=== PATIENT | female | born 1955 | race Caucasian/White ===

== ENCOUNTER 2022-09-22 15:56 | Emergency (ER) | payer MEDICARE, OTHER, SELFPAY ==
[2022-09-22] VITALS (15 sets, daily range): BP systolic 142–149; BP diastolic 90–104; PULSE 78–102; RESP 13–25; TEMP 36.8; O2SAT 90–98; BMI 44.9
--- NOTE | 2022-09-22 16:28 | ECG_ITS ---
[facility] Test Date: 2022-09-22 Pat Name: MYLES RODRIGUEZ Department: Room: - Gender: Female Statistics Manager: : 1955 Requested By: CONNIE ONOFRE Order Number: [id number] Reading MD: JULIANA ROY Measurements Intervals [place] Rate: 103 P: -34653 DC: -21085 QRS: 153 QRSD: 134 T: -10 QT: 404 QTc: 463 Interpretive Statements 42559 Atrial fibrillation with rapid ventricular response with aberrant conduction, or ventricular premature complexes 2450 Right bundle branch block 7100 Abnormal right axis deviation 9150 abnormal ECG No previous ECG available for comparison Electronically Signed On 09-22-2022 20:29:46 EDT by JULIANA ROY
[2022-09-22] MEDS: ONDANSETRON PF 4 MG/2 ML VIAL IV (16:49)
[2022-09-22] MEDS: 0.9 % SODIUM CHLORIDE 1,000 ML 1000 ML IV (16:49)
[2022-09-22] MEDS: PANTOPRAZOLE SODIUM 40 MG VIAL IV (16:49)
[2022-09-22 17:02] LABS: Basophils Percent Auto 0.6 % (0.2-2.0); Eosinophils Absolute Auto 0.1 10^3/uL (0.0-0.7); Eosinophils Percent Auto 1.2 % (0.9-7.0); Hematocrit 46.1 % (36.0-48.0); Hemoglobin 15.7 g/dL (12.0-16.0); Immature Granulocytes Abs Auto 0.02 10^3/uL (0.00-0.03); Immature Granulocytes Pct Auto 0.3 % (0.0-0.5); Lymphocytes Absolute Auto 1.7 10^3/uL (1.2-3.8); Lymphocytes Percent Auto 26.1 % (20.5-60.0); Mean Corpuscular HGB Conc 34.1 g/dL (29.9-35.2); Mean Corpuscular Hemoglobin 29.6 pg (26.7-34.0); Monocytes Absolute Auto 0.6 10^3/uL (0.3-0.8); Monocytes Percent Auto 9.6 % (1.7-12.0); Neutrophils Absolute Auto 4.1 10^3/uL (1.4-6.5); Neutrophils Percent Auto 62.2 % (43.0-75.0); Platelet Count 271 10^3/uL (150-450); White Blood Count 6.7 10^3/uL (4.0-11.0)
[2022-09-22 17:20] LABS: D Dimer 0.36 mg/L FEU (<=0.59)
--- NOTE | 2022-09-22 17:38 | XR_ITS ---
The [address] [address] Patient Name: MYLES RODRIGUEZ MRN: [id number] date: 1955 Sex: F Assigned Patient Location: ER Current Patient Location: ER Accession/Order Number: [id number] Exam Date: 09/22/2022 17:40 Report Date: 09/22/2022 18:00 At the request of: JUAN R VÁZQUEZ Procedure: XR chest 1V EXAM: XR chest 1V HISTORY: . chest pain . COMPARISON: 08/04/2014 TECHNIQUE: Single view of the chest. FINDINGS: Heart and vascularity are unremarkable. Lungs are free of focal infiltrates. Arthritic changes of both shoulders are noted. EKG leads overlie the chest. Impression: No acute heart or lung disease identified. Electronically authenticated by: TRACY LEMUS Date: 09/22/2022 18:00
[2022-09-22 17:42] LABS: INR 1.03; Partial Thromboplastin Time 30.1 sec (22.3-36.2); Prothrombin Time 10.9 sec (9.0-11.6)
[2022-09-22 17:43] LABS: Alanine Aminotransferase 25 U/L (14-59); Albumin Globulin Ratio 0.9; Albumin Level 4.1 g/dL (3.4-5.0); Alkaline Phosphatase 103 U/L (46-116); Anion Gap 13.2; Aspartate Amino Transferase 22 U/L (15-37); BUN Creatinine Ratio 20.7; Bilirubin Total 0.4 mg/dL (0.2-1.0); Calcium 9.1 mg/dL (8.5-10.1); Carbon Dioxide 27.1 mmol/L (21.0-32.0); Chloride 98 mmol/L (98-107); Estimated GFR (African America >60 (>=60); Estimated GFR (Non-African Ame >60 (>=60); Globulin 4.5 g/dL; Glucose 94 mg/dL (74-106); Potassium 3.3 mmol/L (3.5-5.1); Sodium 135 mmol/L (136-145); Total Protein 8.6 g/dL (6.4-8.2)
[2022-09-22 17:50] LABS: Troponin I High Sensitivity 7.4 pg/mL (4.0-51.3)
--- NOTE | 2022-09-22 18:05 | ED.GENADUL1 ---
Documented by User: NEDRA Reynoso 09/22/22 18:22 HPI - General Adult General Chief complaint: Chest Pain Stated complaint: HIGH BLOOD PRESSURE Time Seen by Provider: 09/22/22 16:28 Source: patient Mode of arrival: walk-in Limitations: no limitations History of Present Illness HPI narrative: patient is a 67-year-old female who presents to the emergency department for the evaluation of epigastric discomfort that began this morning. She states it has been constant throughout the day. She states pain started radiating to her right shoulder and in between her shoulder blades. She states that made her nervous and she came to the Emergency Room to be evaluated. She denies any sonja chest pain, shortness of breath. She has a history of atrial fibrillation, she sees a salesperson [employer] in [place]. She has no appointment next week. She states she is chronically in atrial fibrillation. She has had no fevers, she has a chronic sinus infection. She has had no vomiting or diarrhea. She states she has had similar issues with epigastric discomfort, belching in the past, but today seems to be lasting longer than typical. She is not a smoker. She has no other medical history. Related Data Previous Rx's Medication Instructions Recorded ondansetron 4 mg disintegrating 4 mg PO Q6H PRN nausea and 09/22/22 tablet vomiting #12 tabs pantoprazole 40 mg tablet,delayed 40 mg PO DAILY #7 tabs 09/22/22 release (Protonix) sucralfate 1 gram tablet (Carafate) 1 g PO Q6H PRN abdominal pain #12 09/22/22 tabs Allergies Allergy/AdvReac Type Severity Reaction Status Date / Time codeine Allergy Unknown Verified 09/22/22 18:13 ezetimibe [From Zetia] Allergy Unknown Verified 09/22/22 18:13 Penicillins Allergy Unknown Verified 09/22/22 18:13 prochlorperazine Allergy Unknown Verified 09/22/22 18:13 [From Compazine] Review of Systems ROS Constitutional Denies: fever or chills Ears, nose, mouth, and throat Denies: throat pain Cardiovascular Denies: chest pain Respiratory Denies: shortness of breath or cough Gastrointestinal Reports: abdominal pain; Denies: nausea or vomiting Musculoskeletal Reports: back pain; Denies: neck pain Integumentary/Breast Denies: rash Neurological Denies: headache Hematologic/Lymphatic Denies: easy bruising PFSH PFS Social History Smoking status: Never smoker Exam Narrative Exam Narrative: Gen.: Awake, alert, in no distress Head: Normocephalic, atraumatic ENT: Moist mucous membranes Respiratory: No respiratory distress, lungs clear bilaterally Cardio: Irregular rate and rhythm Gastrointestinal: Abdomen is soft, nondistended and nontender to palpation Extremities: Moves extremities equally, no injuries noted Psych: Normal mood and affect Neuro: No focal neuro deficit Skin: Warm, dry, intact Constitutional Vital Signs, click to edit/add: Last Vital Signs Temp 98.2 F 09/22/22 16:06 Pulse 88 09/22/22 17:50 Resp 14 09/22/22 17:50 BP 148/93 H 09/22/22 17:36 Pulse Ox 95 09/22/22 17:50 O2 Del Method Room Air 09/22/22 16:59 Course Vital Signs Vital signs: Vital Signs Temperature 98.2 F 09/22/22 16:06 Pulse Rate 98 H 09/22/22 16:06 Respiratory Rate 20 09/22/22 16:06 Blood Pressure 142/90 H 09/22/22 16:06 Pulse Oximetry 98 09/22/22 16:06 Oxygen Delivery Method Room Air 09/22/22 16:06 Temperature 98.2 F 09/22/22 16:06 Pulse Rate 88 09/22/22 17:50 Respiratory Rate 14 09/22/22 17:50 Blood Pressure 148/93 H 09/22/22 17:36 Pulse Oximetry 95 09/22/22 17:50 Oxygen Delivery Method Room Air 09/22/22 16:59 Medical Decision Making MDM Narrative Medical decision making narrative: patient with rate controlled atrial fibrillation in the Emergency Room, lab studies show normal troponin, normal d-dimer with normal LFTs and lipase. Chest x-ray shows no evidence of acute cardiopulmonary changes. Patient with a heart score of three, she has no other significant medical history but is [age] with a BMI of forty-four. Patient will be discharged home. She was reevaluated by attending physician prior to discharge. She was treated with Protonix and Zofran in the Emergency Room. She'll be discharged home with Protonix, Carafate, Zofran for suspected epigastric discomfort-esophagitis versus gastritis. Follow-up with PCP and return to the Emergency Room if symptoms change or worsen. Medical Records Medical records reviewed: Yes I reviewed the patient's medical records Lab Data Lab results reviewed: Yes I reviewed the patient's lab results Labs: Lab Results 09/22/22 Range/Units 16:50 WBC 6.7 (4.0-11.0) 10^3/uL RBC 5.30 (4.20-5.40) 10^6/uL Hgb 15.7 (12.0-16.0) g/dL Hct 46.1 (36.0-48.0) % MCV 87.0 (81.0-99.0) fL MCH 29.6 (26.7-34.0) pg MCHC 34.1 (29.9-35.2) g/dL RDW 15.0 (11.0-15.0) % Plt Count 271 (150-450) 10^3/uL MPV 10.0 (9.5-13.5) fL Neut % (Auto) 62.2 (43.0-75.0) % Lymph % (Auto) 26.1 (20.5-60.0) % [place] % (Auto) 9.6 (1.7-12.0) % Eos % (Auto) 1.2 (0.9-7.0) % Baso % (Auto) 0.6 (0.2-2.0) % Neut # (Auto) 4.1 (1.4-6.5) 10^3/uL Lymph # (Auto) 1.7 (1.2-3.8) 10^3/uL [place] # (Auto) 0.6 (0.3-0.8) 10^3/uL Eos # (Auto) 0.1 (0.0-0.7) 10^3/uL Baso # (Auto) 0.0 (0.0-0.1) 10^3/uL Abs Immat Gran (auto) 0.02 (0.00-0.03) 10^3/uL Imm/Tot Granulo (auto) 0.3 (0.0-0.5) % PT 10.9 (9.0-11.6) sec INR 1.03 APTT 30.1 (22.3-36.2) sec D-Dimer 0.36 (<=0.59) mg/L FEU Sodium 135 L (136-145) mmol/L Potassium 3.3 L (3.5-5.1) mmol/L Chloride 98 (98-107) mmol/L Carbon Dioxide 27.1 (21.0-32.0) mmol/L Anion Gap 13.2 BUN 17.0 (7.0-18.0) mg/dL Creatinine 0.82 (0.55-1.02) mg/dL Est GFR ( Amer) >60 (>=60) Est GFR (Non-Af Amer) >60 (>=60) BUN/Creatinine Ratio 20.7 Glucose 94 (74-106) mg/dL Calcium 9.1 (8.5-10.1) mg/dL Total Bilirubin 0.4 (0.2-1.0) mg/dL AST 22 (15-37) U/L ALT 25 (14-59) U/L Alkaline Phosphatase 103 (46-116) U/L Troponin I High Sens 7.4 (4.0-51.3) pg/mL NT-Pro-B Natriuret Pep 477.0 (<=900.0) pg/mL Total Protein 8.6 H (6.4-8.2) g/dL Albumin 4.1 (3.4-5.0) g/dL Globulin 4.5 g/dL Albumin/Globulin Ratio 0.9 Lipase 57.0 L (73.0-393.0) U/L Imaging Data Chest x-ray: Attestation: I have reviewed the pertinent imaging results. Radiologist's impression: Procedure: XR chest 1V EXAM: XR chest 1V HISTORY: . chest pain . COMPARISON: 08/04/2014 TECHNIQUE: Single view of the chest. FINDINGS: Heart and vascularity are unremarkable. Lungs are free of focal infiltrates. Arthritic changes of both shoulders are noted. EKG leads overlie the chest. Impression: No acute heart or lung disease identified. Electronically authenticated by: TRACY LEMUS Date: 09/22/2022 18:00 ECG Data Attestation: I personally reviewed and interpreted this ECG as follows: (atrial fibrillation at a rate of 103, right bundle branch block noted with no acute ST elevation. No ectopy. EKG reviewed by attending physician. Mild artifact noted.) Discharge Plan Discharge Chief Complaint: Chest Pain Clinical Impression: Epigastric abdominal pain Patient Disposition: Home, Self-Care Time of Disposition Decision: 18:09 Condition: Good Prescriptions / Home Meds: New sucralfate [Carafate] 1 gram tablet 1 g PO Q6H PRN (Reason: abdominal pain) Qty: 12 0RF pantoprazole [Protonix] 40 mg tablet,delayed release (DR/EC) 40 mg PO DAILY Qty: 7 0RF ondansetron 4 mg tablet,disintegrating 4 mg PO Q6H PRN (Reason: nausea and vomiting) Qty: 12 0RF Instructions: Epigastric Pain (ED) Stand Alone Forms: Portal Instructions Referrals: CONNIE ONOFRE [Primary Care Provider] - 1 week Discharge Date/Time: 09/22/22 18:33 Documented by User: Emanuel Gil MD 09/22/22 20:58 HPI - General Adult General Chief complaint: Chest Pain Stated complaint: HIGH BLOOD PRESSURE Time Seen by Provider: 09/22/22 16:28 Related Data Previous Rx's Medication Instructions Recorded ondansetron 4 mg disintegrating 4 mg PO Q6H PRN nausea and 09/22/22 tablet vomiting #12 tabs pantoprazole 40 mg tablet,delayed 40 mg PO DAILY #7 tabs 09/22/22 release (Protonix) sucralfate 1 gram tablet (Carafate) 1 g PO Q6H PRN abdominal pain #12 09/22/22 tabs Allergies Allergy/AdvReac Type Severity Reaction Status Date / Time codeine Allergy Unknown Verified 09/22/22 18:13 ezetimibe [From Zetia] Allergy Unknown Verified 09/22/22 18:13 Penicillins Allergy Unknown Verified 09/22/22 18:13 prochlorperazine Allergy Unknown Verified 09/22/22 18:13 [From Compazine] [facility] PFS Social History Smoking status: Never smoker Exam Constitutional Vital Signs, click to edit/add: Last Vital Signs Temp 98.2 F 09/22/22 16:06 Pulse 88 09/22/22 17:50 Resp 14 09/22/22 17:50 BP 148/93 H 09/22/22 17:36 Pulse Ox 95 09/22/22 17:50 O2 Del Method Room Air 09/22/22 16:59 Course Vital Signs Vital signs: Vital Signs Temperature 98.2 F 09/22/22 16:06 Pulse Rate 98 H 09/22/22 16:06 Respiratory Rate 20 09/22/22 16:06 Blood Pressure 142/90 H 09/22/22 16:06 Pulse Oximetry 98 09/22/22 16:06 Oxygen Delivery Method Room Air 09/22/22 16:06 Temperature 98.2 F 09/22/22 16:06 Pulse Rate 88 09/22/22 17:50 Respiratory Rate 14 09/22/22 17:50 Blood Pressure 148/93 H 09/22/22 17:36 Pulse Oximetry 95 09/22/22 17:50 Oxygen Delivery Method Room Air 09/22/22 16:59 Medical Decision Making MDM Narrative Medical decision making narrative: patient with rate controlled atrial fibrillation in the Emergency Room, lab studies show normal troponin, normal d-dimer with normal LFTs and lipase. Chest x-ray shows no evidence of acute cardiopulmonary changes. Patient with a heart score of three, she has no other significant medical history but is [age] with a BMI of forty-four. Patient will be discharged home. She was reevaluated by attending physician prior to discharge. She was treated with Protonix and Zofran in the Emergency Room. She'll be discharged home with Protonix, Carafate, Zofran for suspected epigastric discomfort-esophagitis versus gastritis. Follow-up with PCP and return to the Emergency Room if symptoms change or worsen. Patient only takes Cardizem for atrial fibrillation. Patient is obese, and with her age she has a Heart score of 3. No indication for 2nd troponin. Patient has a follow-up appointment next week with her salesperson [employer]. Patient's heart rate has been controlled, she has no chest pain, shortness of breath, or any other acute symptoms at discharge. Patient's chief concern was for intermittent elevated blood pressure today with minimal symptoms. Patient is aware to keep a blood pressure log, record her blood pressure twice a day to cc her heart doctor next week and present her blood pressure to the heart doctor to see if any changes are needed. Lab Data Labs: Lab Results 09/22/22 Range/Units 16:50 WBC 6.7 (4.0-11.0) 10^3/uL RBC 5.30 (4.20-5.40) 10^6/uL Hgb 15.7 (12.0-16.0) g/dL Hct 46.1 (36.0-48.0) % MCV 87.0 (81.0-99.0) fL MCH 29.6 (26.7-34.0) pg MCHC 34.1 (29.9-35.2) g/dL RDW 15.0 (11.0-15.0) % Plt Count 271 (150-450) 10^3/uL MPV 10.0 (9.5-13.5) fL Neut % (Auto) 62.2 (43.0-75.0) % Lymph % (Auto) 26.1 (20.5-60.0) % [place] % (Auto) 9.6 (1.7-12.0) % Eos % (Auto) 1.2 (0.9-7.0) % Baso % (Auto) 0.6 (0.2-2.0) % Neut # (Auto) 4.1 (1.4-6.5) 10^3/uL Lymph # (Auto) 1.7 (1.2-3.8) 10^3/uL [place] # (Auto) 0.6 (0.3-0.8) 10^3/uL Eos # (Auto) 0.1 (0.0-0.7) 10^3/uL Baso # (Auto) 0.0 (0.0-0.1) 10^3/uL Abs Immat Gran (auto) 0.02 (0.00-0.03) 10^3/uL Imm/Tot Granulo (auto) 0.3 (0.0-0.5) % PT 10.9 (9.0-11.6) sec INR 1.03 APTT 30.1 (22.3-36.2) sec D-Dimer 0.36 (<=0.59) mg/L FEU Sodium 135 L (136-145) mmol/L Potassium 3.3 L (3.5-5.1) mmol/L Chloride 98 (98-107) mmol/L Carbon Dioxide 27.1 (21.0-32.0) mmol/L Anion Gap 13.2 BUN 17.0 (7.0-18.0) mg/dL Creatinine 0.82 (0.55-1.02) mg/dL Est GFR ( Amer) >60 (>=60) Est GFR (Non-Af Amer) >60 (>=60) BUN/Creatinine Ratio 20.7 Glucose 94 (74-106) mg/dL Calcium 9.1 (8.5-10.1) mg/dL Total Bilirubin 0.4 (0.2-1.0) mg/dL AST 22 (15-37) U/L ALT 25 (14-59) U/L Alkaline Phosphatase 103 (46-116) U/L Troponin I High Sens 7.4 (4.0-51.3) pg/mL NT-Pro-B Natriuret Pep 477.0 (<=900.0) pg/mL Total Protein 8.6 H (6.4-8.2) g/dL Albumin 4.1 (3.4-5.0) g/dL Globulin 4.5 g/dL Albumin/Globulin Ratio 0.9 Lipase 57.0 L (73.0-393.0) U/L Discharge Plan Discharge Chief Complaint: Chest Pain Clinical Impression: Epigastric abdominal pain Patient Disposition: Home, Self-Care Time of Disposition Decision: 18:09 Condition: Good Prescriptions / Home Meds: New sucralfate [Carafate] 1 gram tablet 1 g PO Q6H PRN (Reason: abdominal pain) Qty: 12 0RF pantoprazole [Protonix] 40 mg tablet,delayed release (DR/EC) 40 mg PO DAILY Qty: 7 0RF ondansetron 4 mg tablet,disintegrating 4 mg PO Q6H PRN (Reason: nausea and vomiting) Qty: 12 0RF Instructions: Epigastric Pain (ED) Stand Alone Forms: Portal Instructions Referrals: CONNIE ONOFRE [Primary Care Provider] - 1 week Discharge Date/Time: 09/22/22 18:33
== END 2022-09-22 18:33 | disposition home or self-care (01) ==
PROVIDERS: Physician Assistant; Emergency Provider Emergency Medicine; PCP Internal Medicine
DX: R10.13 Epigastric pain (principal); I48.91 Unspecified atrial fibrillation; Z79.899 Other long term (current) drug therapy
CPT/HCPCS: 36415; 71045; 80053; 83690; 83880; 84484; 85025; 85378; 85610; 85730; 93005; 99285

== ENCOUNTER 2023-05-29 13:26 | Outpatient (OUT) | payer MEDICARE, OTHER, SELFPAY | END 2023-05-29 13:27 | disposition home or self-care (01) | LOC: LAB 13:28 | PROVIDERS: PCP Internal Medicine; Visit Provider Nurse Practitioner Family | DX: J32.0 Chronic maxillary sinusitis (principal) | CPT/HCPCS: 87070; 87150; 87186 ==